=== PATIENT | female | born 1955 | race African-American/Black ===

== ENCOUNTER 2018-03-31 12:49 | Outpatient (CLI) | payer OTHER | END 2018-03-31 12:50 | disposition home or self-care (01) | LOC: BICMAMMO 12:49 | PROVIDERS: ATTEND Internal Medicine | DX: Z12.31 Encounter for screening mammogram for malignant neoplasm of breast (principal); R92.1 Mammographic calcification found on diagnostic imaging of breast; N64.89 Other specified disorders of breast | CPT/HCPCS: 77063; 77067 ==

== ENCOUNTER 2018-05-05 10:03 | Outpatient (CLI) | payer OTHER ==
--- NOTE | 2018-05-05 10:25 | RAD ---
TWO VIEWS CHEST: Comparison: 01-24-06 History: Shortness of breath FINDINGS: Two views of the chest show normal sized cardiomediastinal silhouette. There is no evidence of consol idation, mass, or pleural effusion. The bones are unremarkable. IMPRESSION: No evidence of acute cardiopulmonary disease. POS: [facility]
== END 2018-05-05 10:04 | disposition home or self-care (01) ==
LOC: BICRAD 10:03
PROVIDERS: ATTEND Internal Medicine
DX: R06.02 Shortness of breath (principal)
CPT/HCPCS: 71046

== ENCOUNTER 2018-07-23 13:02 | Outpatient (CLI) | payer OTHER | END 2018-07-23 13:03 | disposition home or self-care (01) | PROVIDERS: ATTEND Internal Medicine Pulmonary Disease | DX: J44.9 Chronic obstructive pulmonary disease, unspecified (principal) ==

== ENCOUNTER 2019-01-18 09:13 | Outpatient (CLI) | payer OTHER ==
--- NOTE | 2019-01-18 11:32 | BD ---
DEXA BONE DENSITY STUDY: Date: 01/18/19 HISTORY: Osteoporosis screening. COMPARISON: None. FINDINGS: Lumbar Spine: BMD (g/cm2) L1 0.763 T-Score: -2.1 Z-Score: 0.5 L2 0.784 T-Score: -2.2 Z-Score: -0.5 L3 0.763 T-Score: -2.9 Z-Score: -1.4 L4 0.853 T-Score: -1.9 Z-Score: 0.0 L1-L4 0.795 T-Score: -2.3 Z-Score: -0.5 Left Femoral Neck: 0.665 T-Score: -1.5 Z-Score: 0.0 Total Femur: 0.871 T-Score: -0.6 Z-Score: 0.6 WHO Classification: Osteopenia. 10 Year Fracture Risk: Major osteoporotic fracture: 3.6% Hip fracture: 0.3% IMPRESSION: Osteopenia with elevated fracture risk. POS: OFF
== END 2019-01-18 09:14 | disposition home or self-care (01) ==
LOC: BICMAMMO 09:13
PROVIDERS: ATTEND Internal Medicine
DX: Z13.820 Encounter for screening for osteoporosis (principal); M85.89 Other specified disorders of bone density and structure, multiple sites
CPT/HCPCS: 77080

== ENCOUNTER 2019-02-15 11:52 | Outpatient (CLI) | payer OTHER ==
--- NOTE | 2019-02-15 12:25 | RAD ---
XR Chest Pa Lat @ POB History: Dyspnea Comparison: Radiograph April 2018 Findings: Heart size mildly enlarged. Mild pulmonary venous congestion. No pneumothorax. No effusion. No acute osseous abnormality. Impression: Cardiomegaly with mild pulmonary venous congestion.
== END 2019-02-15 11:53 | disposition home or self-care (01) ==
LOC: RAD 11:52
PROVIDERS: ATTEND Internal Medicine Pulmonary Disease
DX: R06.00 Dyspnea, unspecified (principal); I51.7 Cardiomegaly; I87.8 Other specified disorders of veins
CPT/HCPCS: 71046

== ENCOUNTER 2019-03-01 03:06 | Inpatient (IN) | payer OTHER ==
[2019-03-01] MEDS ORDERED: methylPREDNISolone Sod Succ/PF 125 MG/2 ML VIAL ONE (03:47)
[2019-03-01 04:17] LABS: ALT (SGPT) 24 U/L (8-55); AST (SGOT) 24 U/L (5-34); Albumin 3.5 g/dL (3.4-4.8); Alkaline Phosphatase 131 U/L (40-110); Anion Gap 17 mmol/L (10-20); BUN (Urea Nitrogen) 30 mg/dL (9.8-20.1); Bilirubin, Total 0.7 mg/dL (0.2-1.2); Calc. Creatinine Clearance 0 mL/min (70-130); Calcium 9.3 mg/dL (7.8-10.44); Carbon Dioxide 24 mmol/L (23-31); Chloride 102 mmol/L (98-107); Estimated GFR-MDRD 54; Globulin 3.4 g/dL (2.4-3.5); Glucose 189 mg/dL (80-115); Potassium 3.7 mmol/L (3.5-5.1); Protein, Total 6.9 g/dL (6.0-8.3); Sodium 139 mmol/L (136-145)
[2019-03-01 04:25] LABS: Hemoglobin 10.2 g/dL (12.0-16.0); Mean Corpuscular HGB CONC 31.8 g/dL (32.0-36.0); Mean Corpuscular Hemoglobin 23.6 pg (27.0-31.0); Mean Corpuscular Volume 74.3 fL (78.0-98.0); Mean Platelet Volume 10.7 fL (7.4-10.4); Platelet Count 326 thou/uL (130-400); RBC Distribution Width 16.3 % (11.5-14.5); Red Blood Cell (RBC) Count 4.33 mill/uL (4.20-5.40); White Blood Cell (WBC) Count 9.9 thou/uL (4.8-10.8)
[2019-03-01] MEDS ORDERED: Furosemide 40 MG/4 ML VIAL ONE ×4 (04:37→13:38)
[2019-03-01 04:39] LABS: CKMB 3.3 ng/mL (0-6.6)
[2019-03-01 05:07] LABS: #Basophils 0.1 thou/uL (0.0-0.2); #Lymphocytes 2.6 thou/uL (1.20-3.40); #Monocytes 0.8 thou/uL (0.11-0.59); #Neutrophils 6.3 thou/uL (1.40-6.50); %Basophils 0.7 % (0.0-1.0); %Eosinophils 0.5 % (0.0-10.0); %Lymphocytes 26.6 % (21.0-51.0); %Monocytes 8.4 % (0.0-10.0); %Neutrophils 63.8 % (42.0-75.0); Anisocytosis SLIGHT = 6-15 cells (100X) (0-5/hpf); Burr Cells SLIGHT = 2-5 cells (100X) (0-1/hpf); Hypochromia SLIGHT = 6-15 cells (100X) (0-5/hpf); Large Platelets SLIGHT; MDiff Complete? YES; Microcytosis SLIGHT = 6-15 cells (100X) (0-5/hpf); Platelet Morphology Comment Appears Adequate; Polychromasia SLIGHT = 2-3 cells (100X) (0-2/hpf); Target Cells SLIGHT = 2-5 cells (100X) (0-1/hpf)
--- NOTE | 2019-03-01 05:16 | PDOC.HHP ---
Hospitalist HPI - History of Present Illness Shortness of breath History of Present Illness: Patient is a 63 year old female with PMH COPD, CAD, DM, HTN who presents to hospital for shortness of breath for a few weeks, drastically worsened on Friday. She went to jig and fixture builder apprentice last week who prescribed steroids, patient has been using neb treatments as well at home BID, helped somewhat but did not reverse decline. Her feet began to swell as well. She had a DVT study which was negative as outpatient. Patient reported some chest pain this morning that has resolved. Patient went to molten iron pourer last month (Dr. Wright) who performed EKG , echo, heart cath and reported to patient all results were normal. Patient has been recommended to wear o2 at home by one of her doctors but has not yet been approved. Hospitalist ROS - Review of Systems Constitutional: denies: fever, chills Eyes: denies: pain, vision change ENT: denies: ear pain, mouth swelling Respiratory: reports: shortness of breath. denies: cough Cardiovascular: reports: chest pain, edema. denies: light headedness Gastrointestinal: denies: nausea, vomiting Genitourinary: denies: dysuria, frequency Musculoskeletal: denies: neck pain, shoulder pain Skin: denies: rash, lesions Neurological: denies: weakness, numbness All other systems reviewed; all pertinent +/- noted in HPI/Subj - Medication Medications: reviewed Hospitalist History - Past Medical History Other Medical History: COPD DM HTN CAD - Past Surgical History Other Surgical History: stents c section hysterectomy - Family History Family History: reports: no pertinent history - Social History Smoking Status: Never smoker Alcohol: reports: None Drugs: reports: none - Exam General Appearance: NAD, awake alert Eye: PERRL, anicteric sclera ENT: normocephalic atraumatic, no oropharyngeal lesions, moist mucosa Neck: supple, no JVD Heart: RRR, no murmur, no gallops, no rubs Respiratory - other findings: bibasilar crackles Gastrointestinal: soft, non-tender, non-distended Extremities: no cyanosis, no clubbing, 2+ LE edema Skin: no lesions, no rashes Neurological: cranial nerve grossly intact, normal sensation to touch, no weakness, no focal deficits Musculoskeletal: normal tone, normal strength Psychiatric: normal affect, normal behavior, A&O x 3, oriented to person Hospitalist Results - Labs Result Diagrams: 03/01/19 03:47 03/01/19 03:46 Lab results: WBC 9.9 thou/uL (4.8-10.8) 03/01/19 03:47 Hgb 10.2 g/dL (12.0-16.0) L 03/01/19 03:47 Hct 32.2 % (36.0-47.0) L 03/01/19 03:47 MCV 74.3 fL (78.0-98.0) L 03/01/19 03:47 Plt Count 326 thou/uL (130-400) 03/01/19 03:47 Neutrophils % 63.8 % (42.0-75.0) 03/01/19 03:47 Sodium 139 mmol/L (136-145) 03/01/19 03:46 Potassium 3.7 mmol/L (3.5-5.1) 03/01/19 03:46 Chloride 102 mmol/L (98-107) 03/01/19 03:46 Carbon Dioxide 24 mmol/L (23-31) 03/01/19 03:46 BUN 30 mg/dL (9.8-20.1) H 03/01/19 03:46 Creatinine 1.21 mg/dL (0.6-1.1) H 03/01/19 03:46 Glucose 189 mg/dL (80-115) H 03/01/19 03:46 Calcium 9.3 mg/dL (7.8-10.44) 03/01/19 03:46 Total Bilirubin 0.7 mg/dL (0.2-1.2) 03/01/19 03:46 AST 24 U/L (5-34) 03/01/19 03:46 ALT 24 U/L (8-55) 03/01/19 03:46 Alkaline Phosphatase 131 U/L (40-110) H 03/01/19 03:46 CK-MB (CK-2) 3.3 ng/mL (0-6.6) 03/01/19 03:46 Troponin I 0.036 ng/mL (< 0.028) H 03/01/19 03:46 B-Natriuretic Peptide 982.6 pg/mL (0-100) H 03/01/19 03:46 Serum Total Protein 6.9 g/dL (6.0-8.3) 03/01/19 03:46 Albumin 3.5 g/dL (3.4-4.8) 03/01/19 03:46 Additional comment: EKG sinus, nonspecific t wave changes Hospitalist H&P A/P - Plan Plan: 63F admitted for: # new onset CHF - worsening for weeks, negative cardiac workup and negative DVT duplex, sees Dr Luis of cardiology and Dr Beach of pulmonology - start 80 IV lasix BID - consult Dr Beach - need to talk to Dr Wright, call office when time permits or request records to see recent workup - trend troponins # HTN - resume home meds, PRNs in chart # DM - SSI # copd - no wheezing, consult Dr Beach
[2019-03-01] MEDS ORDERED: Furosemide 100 MG/10 ML VIAL SLOW IVP SCH ×2 (06:00→14:00)
[2019-03-01] MEDS ORDERED: HYDROcodone/Acetaminophen 5/325 mg Tablet PO PRN (06:09)
[2019-03-01] MEDS ORDERED: Acetaminophen 325 MG TAB PO PRN (06:09)
[2019-03-01] MEDS ORDERED: Bisacodyl 5 MG TAB PO PRN (06:09)
[2019-03-01] MEDS ORDERED: Bisacodyl 10 MG SUPP PR PRN (06:09)
[2019-03-01] MEDS ORDERED: Furosemide 40 MG/4 ML VIAL SLOW IVP SCH (07:00)
--- NOTE | 2019-03-01 08:30 | RAD ---
PORTABLE CHEST: Date: 03/01/19 PROVIDED CLINICAL HISTORY: Dyspnea. FINDINGS: Comparison with 02/15/19. The cardiac silhouette remains prominently enlarged. No focal consolidation, pleural fluid, or pneumo thorax apparent. IMPRESSION: Persistent enlargement of the cardiac silhouette without evidence for an acute cardiopulmonary proces s. POS: OFF
[2019-03-01] MEDS ORDERED: Enoxaparin Sodium 40 MG/0.4 ML SYRINGE ONE (09:49)
[2019-03-01] MEDS: Enoxaparin Sodium 40 MG/0.4 ML SYRINGE SC SCH (09:59)
[2019-03-01 10:26] LABS: Troponin I 0.013 ng/mL (< 0.028)
[2019-03-01] MEDS ORDERED: Ondansetron ODT 4 MG TAB PO PRN (11:01)
[2019-03-01] MEDS ORDERED: methylPREDNISolone Sod Succ/PF 125 MG/2 ML VIAL IVP SCH (12:00)
[2019-03-01] MEDS ORDERED: methylPREDNISolone Sod Succ 40 MG VIAL ONE ×2 (13:37→17:47)
[2019-03-01] MEDS: methylPREDNISolone Sod Succ 40 MG VIAL IVP SCH ×2 (13:43→19:04)
[2019-03-01] MEDS ORDERED: Furosemide 100 MG/10 ML VIAL ONE (13:48)
--- NOTE | 2019-03-01 14:30 | CON ---
DATE OF CONSULTATION: HISTORY OF PRESENT ILLNESS: Zohreh Prabhakar is a 63-year-old female, who was brought into the hospital with increasing shortness of breath, unresponsive to usual medication. She noticed orthopnea, PND, and lower extremity swelling. X-ray shows cardiomegaly and cephalization. She was given a breathing treatment and diuretics in the hospital. To good relief on most days, she can barely walk any significant distance without getting markedly short of breath. PAST MEDICAL HISTORY: COPD, diabetes, coronary artery disease, and hypertension. PAST SURGICAL HISTORY: Including multiple stents, , and appendix. HOME MEDICATIONS: Include; 1. Metformin 1000 mg. 2. Glimepiride 5 mg twice a day. 3. Simvastatin 5 mg. ALLERGIES: NONE. SOCIAL HISTORY: Tobacco, none. Alcohol, none. Drugs, none. REVIEW OF SYSTEMS: Otherwise, ten-point negative. PHYSICAL EXAMINATION: VITAL SIGNS: On examination, temperature 98, pulse 90, respiratory rate 24, saturations are 93 on 2 L, and blood pressure 146/80. CHEST: No wheezing or crackles. CARDIAC: Normal S1 and S2. No gallops. ABDOMEN: Soft. EXTREMITIES: 1+ edema. LABORATORY DATA: Creatinine is 1.21. BNP is 982. Troponin is elevated. IMPRESSION: 1. Dyspnea secondary to congestive heart failure. 2. Nonsmoker. 3. Severe deconditioning. 4. Azotemia likely with diuretics. PLAN: Echo is being ordered. BNP is elevated. I have initiated neb treatments and steroids to her present regimen. We will follow. Consultation note, 70 minutes, 50% direct patient care. Job ID: [id number]
[2019-03-01 18:47] LABS: Troponin I 0.018 ng/mL (< 0.028)
[2019-03-01] MEDS ORDERED: Dextrose 50% Abboject 50 ML SYRINGE SLOW IVP PRN (19:13)
[2019-03-01] MEDS ORDERED: Dextrose 5% in Water 1,000 ML IV PRN (19:13)
--- NOTE | 2019-03-01 21:23 | PDOC.EVN ---
Event Note - Event Note Event Note: Patient is doing much better with lasix. She denies cough, chest congestion, URI symptoms, wheezing. She states her leg swelling was all the way up to her thighs and now almost gone. Also had orthopnea. She was drinking 3 16 ounce glasses of water daily. She stated her swelling started after taking prednisone taper given by pulmonology. She would like her steroids to be discontinued. She denies chest pain Vitals: patient on 2L oxygen Gen: alert, awake, oriented times three on 2L CV: RRR, no murmurs, rubs, gallops Lungs: CTAB AbdomeN: +BS, soft, nontender, nondistended Extremities: 1+ pitting edema Chest x ray: cardiomegaly This is a 63 year old female with CAD who presented with peripheral edema Acute CHF CAD s/p 5 stents - patient states had ECHO done last month in January with valve inspector. Denies history of CHF, but seems possible. Will obtain records. Does not think her insurance will pay for another one so will d/c - received 120 mg IV lasix today, switch to oral lasix 40 mg po tomorrow. Patient unaware of fluid restriction COPD on 2l oxygen - supposed to get oxygen at home, but hasn't received it yet - continue breathing treatments -d/c steroids Type II diabetes - insulin slidingg scale - on metformin as outpatient
[2019-03-01 21:26] VITALS: BMI 31.8
[2019-03-02 05:07] LABS: #Monocytes 1.2 thou/uL (0.11-0.59); %Basophils 0.1 % (0.0-1.0); %Eosinophils 0.3 % (0.0-10.0); %Lymphocytes 10.4 % (21.0-51.0); %Monocytes 13.1 % (0.0-10.0); %Neutrophils 76.1 % (42.0-75.0); Hemoglobin 10.9 g/dL (12.0-16.0); Mean Corpuscular HGB CONC 30.5 g/dL (32.0-36.0); Mean Corpuscular Hemoglobin 23.7 pg (27.0-31.0); Mean Corpuscular Volume 77.5 fL (78.0-98.0); Mean Platelet Volume 11.4 fL (7.4-10.4); Platelet Count 299 thou/uL (130-400); RBC Distribution Width 16.8 % (11.5-14.5); Red Blood Cell (RBC) Count 4.62 mill/uL (4.20-5.40); White Blood Cell (WBC) Count 9.2 thou/uL (4.8-10.8)
[2019-03-02 05:24] LABS: Anion Gap 18 mmol/L (10-20); BUN (Urea Nitrogen) 32 mg/dL (9.8-20.1); Calc. Creatinine Clearance 60 mL/min (70-130); Calcium 9.2 mg/dL (7.8-10.44); Carbon Dioxide 22 mmol/L (23-31); Chloride 102 mmol/L (98-107); Estimated GFR-MDRD 52; Glucose 244 mg/dL (80-115); Magnesium 1.6 mg/dL (1.6-2.6); Potassium 4.3 mmol/L (3.5-5.1); Sodium 138 mmol/L (136-145)
[2019-03-02] MEDS ORDERED: Furosemide 40 MG TAB PO SCH (07:30)
[2019-03-02 08:16] LABS: Iron 31 ug/dL (50-170); Iron Binding Capacity, Total 418 mcg/dL (265-497)
[2019-03-02] MEDS: Enoxaparin Sodium 40 MG/0.4 ML SYRINGE SC SCH (08:19)
--- NOTE | 2019-03-02 09:13 | PRG ---
DATE OF SERVICE: 03/02/2019 SUBJECTIVE: This morning, she is better. She is less short of breath. I's and O's have been consistently difficult to assess. OBJECTIVE: VITAL SIGNS: Saturations are 92 on 2 L, temperature 97, pulse 89, and blood pressure 130/90. CHEST: Decreased breath sounds. No wheezing. CARDIAC: Normal S1 and S2. No gallops. ABDOMEN: No masses. LABORATORY DATA: Creatinine is 1.25. White count 9000. ASSESSMENT: Chronic obstructive pulmonary disease exacerbation, congestive heart failure, diastolic dysfunction. Apparently, her steroids were discontinued because of concern about swelling. Unfortunately, there is nothing to do with this swelling. BNP is elevated. She has diastolic dysfunction. Respiratory failure, combination of congestive heart failure and chronic obstructive pulmonary disease. Continue low-dose steroids, neb treatments, supportive care. Echo. Cardiac input. Job ID: [id number] MTDD
--- NOTE | 2019-03-02 13:12 | PDOC.HOSPP ---
- Subjective Encounter Date: 03/02/19 Encounter Time: 11:00 Subjective: The patient feels much better. Her breathing got slightly worst today she says. She does not want any steroids. Has a mild cough. She still has some leg swelling. She doesn't yet feel back to her baseline. - Objective Vital Signs & Weight: Vital Signs (12 hours) Temp Pulse Pulse Pulse Resp BP BP 03/02/19 12:00 112 H 108 H 146/71 H 135/68 03/02/19 11:40 97.7 F 112 H 18 03/02/19 10:56 103 H 22 H 03/02/19 07:57 95 18 03/02/19 07:40 97.8 F 89 20 03/02/19 07:30 03/02/19 04:04 98.4 F 107 H 16 BP Pulse Ox Pulse Ox Pulse Ox 03/02/19 12:00 94 L 97 03/02/19 11:40 146/71 H 90 L 03/02/19 10:56 92 L 03/02/19 07:57 92 L 03/02/19 07:40 134/90 94 L 03/02/19 07:30 93 L 03/02/19 04:04 131/70 93 L Weight Weight 185 lb 3.2 oz I&O: 03/01/19 03/02/19 03/03/19 06:59 06:59 06:59 Intake Total 50 Output Total 0 Balance 50 Result Diagrams: 03/02/19 04:41 03/02/19 04:41 Additional Labs: Accuchecks 03/02/19 03/02/19 03/01/19 10:25 06:15 15:28 POC Glucose 243 H 244 H 240 H Hospitalist ROS - Review of Systems Constitutional: denies: fever, chills - Medication Medications: Active Medications Generic Name Dose Route Start Last Admin Trade Name Freq PRN Reason Stop Dose Admin Albuterol/Ipratropium 3 ml 03/01/19 15:00 03/02/19 10:56 Duoneb NEB 3 ml [id number] IZZY Administration Enoxaparin Sodium 40 mg 03/01/19 09:00 03/02/19 08:19 Lovenox SC 40 mg 0900 IZZY Administration Furosemide 40 mg 03/02/19 07:30 03/02/19 08:19 Lasix PO 40 mg DAILY-AC [facility] Administration - Exam General Appearance: NAD, awake alert Eye: PERRL, anicteric sclera ENT: normocephalic atraumatic, no oropharyngeal lesions Neck: supple, symmetric, no JVD, no thyromegaly Heart: RRR, no murmur, no gallops, no rubs Respiratory: CTAB, no wheezes, no rales Respiratory - other findings: mildly diminished breath sounds LLL. On nasal cannula Gastrointestinal: soft, non-tender, non-distended Extremities: no cyanosis, no clubbing Extremities - other findings: 2+ pitting edema bilateral lower extremities Skin: normal turgor, no lesions, no rashes Neurological: cranial nerve grossly intact, normal sensation to touch, no focal deficits Musculoskeletal: normal tone, normal strength, no muscle wasting Psychiatric: normal affect, normal behavior, A&O x 3 Hosp A/P - Plan This is 63 year old female with history of CAD who presented with increasing peripheral edema, orthopnea, admitted for acute CHF Acute CHF CAD s/p 5 stents - she is s/p 120 mg IV lasix yesterday. Got - patient states had ECHO done last month in January with car distributor. Denies history of CHF, but seems possible. Will obtain records. Does not think her insurance will pay for another one so will d/c - received 120 mg IV lasix on 03/01, switched to furosemide 40 mg this am. Will increase it to BID Possible JEAN - creatinine increased to 1.25. Possibly cardiorenal - lasix 40 mg bid - recheck BMP tomorrow COPD on 2l oxygen - supposed to get oxygen at home, but hasn't received it yet - continue breathing treatments -steroids weaned to prednisone 20 mg daily, however patient refusing Type II diabetes - insulin sliding scale - on metformin as outpatient Mild iron deficiency anemia vs anemia of chronic disease - ferritin 73, iron sat low - hemoglobin 10 - needs outpatient colonoscopy - will start iron supplement - check EPO level Code status: full code
[2019-03-02] MEDS: HumaLOG 300 UNITS/3 ML VIAL SC PRN (17:26)
[2019-03-02] MEDS: Furosemide 40 MG TAB PO SCH (20:51)
[2019-03-03] MEDS ORDERED: diphenhydrAMINE 25 MG CAP PO PRN (01:21)
[2019-03-03] MEDS: diphenhydrAMINE 25 MG CAP PO PRN (01:40)
[2019-03-03 05:40] LABS: #Eosinphils 0.1 thou/uL (0.0-0.7); #Lymphocytes 2.3 thou/uL (1.20-3.40); #Neutrophils 8.7 thou/uL (1.40-6.50); %Basophils 0.1 % (0.0-1.0); %Eosinophils 0.5 % (0.0-10.0); %Monocytes 8.6 % (0.0-10.0); %Neutrophils 71.9 % (42.0-75.0); Mean Corpuscular HGB CONC 30.2 g/dL (32.0-36.0); Mean Corpuscular Hemoglobin 23.6 pg (27.0-31.0); Mean Corpuscular Volume 78.1 fL (78.0-98.0); Mean Platelet Volume 11.6 fL (7.4-10.4); Platelet Count 262 thou/uL (130-400); RBC Distribution Width 17.3 % (11.5-14.5); Red Blood Cell (RBC) Count 4.66 mill/uL (4.20-5.40); White Blood Cell (WBC) Count 12.1 thou/uL (4.8-10.8)
[2019-03-03 06:12] LABS: Anion Gap 17 mmol/L (10-20); BUN (Urea Nitrogen) 24 mg/dL (9.8-20.1); Calc. Creatinine Clearance 68 mL/min (70-130); Carbon Dioxide 29 mmol/L (23-31); Chloride 99 mmol/L (98-107); Estimated GFR-MDRD 60; Glucose 177 mg/dL (80-115); Magnesium 1.7 mg/dL (1.6-2.6); Sodium 140 mmol/L (136-145)
[2019-03-03] MEDS: predniSONE 20 MG TAB PO SCH (08:38)
[2019-03-03] MEDS: Enoxaparin Sodium 40 MG/0.4 ML SYRINGE SC SCH (08:38)
[2019-03-03] MEDS: Furosemide 40 MG TAB PO SCH (08:38)
--- NOTE | 2019-03-03 09:29 | PRG ---
DATE OF SERVICE: 03/03/2019 SUBJECTIVE: She is better, less short of breath, less cough. OBJECTIVE: VITAL SIGNS: Temperature 97, pulse 110, respiratory rate 20, sats 97 on 2 L, and blood pressure 106/60. CHEST: No wheezing or crackles. CARDIAC: Normal S1 and S2. No gallops. ABDOMEN: No masses. IMPRESSION: Respiratory failure, chronic obstructive pulmonary disease, congestive heart failure, and diastolic dysfunction. echo ordered was cancelled why ? PLAN: Pulmonary will follow at a distance. She can be discharged home any time. donot call pulmonary if u are going to dc my orders ?? Job ID: [id number] MTDD
[2019-03-03] MEDS: HumaLOG 300 UNITS/3 ML VIAL SC PRN ×2 (10:33→17:34)
--- NOTE | 2019-03-03 19:16 | PDOC.HOSPP ---
- Subjective Encounter Date: 03/03/19 Encounter Time: 19:14 Subjective: The patient is feeling better. Has mild cough. Doesn't feel at her baseline yet. She says she felt dizzy walking. Heart rate is fast, has no history of atrial fibrillation. No palpitations or chest pain She feels her mouth is getting dry - Objective Vital Signs & Weight: Vital Signs (12 hours) Temp Pulse Pulse Resp BP BP BP 03/03/19 16:32 98.2 F 113 H 20 03/03/19 14:07 116 H 18 03/03/19 11:30 98.0 F 116 H 22 H 135/75 03/03/19 10:45 113 H 20 03/03/19 09:24 118 H 105/67 126/66 03/03/19 08:35 97.5 F L 110 H 20 03/03/19 07:27 117 H 22 H BP Pulse Ox 03/03/19 16:32 108/58 L 98 03/03/19 14:07 95 03/03/19 11:30 94 L 03/03/19 10:45 95 03/03/19 09:24 03/03/19 08:35 106/60 96 03/03/19 07:27 96 Weight Weight 183 lb 8 oz I&O: 03/02/19 03/03/19 03/04/19 06:59 06:59 06:59 Intake Total 50 480 970 Output Total 0 Balance 50 480 970 Result Diagrams: 03/03/19 05:03 03/03/19 05:03 Additional Labs: Accuchecks 03/03/19 03/03/19 03/03/19 17:15 10:18 05:23 POC Glucose 289 H 307 H 189 H 03/02/19 20:24 POC Glucose 220 H Hospitalist ROS - Review of Systems Constitutional: denies: fever, chills - Medication Medications: Active Medications Generic Name Dose Route Start Last Admin Trade Name Freq PRN Reason Stop Dose Admin Albuterol/Ipratropium 3 ml 03/01/19 15:00 03/03/19 18:14 Duoneb NEB 3 ml [id number] IZZY Administration Diphenhydramine HCl 50 mg 03/03/19 01:22 03/03/19 01:40 Benadryl PO 50 mg HS PRN Administration Itching & Insomnia Enoxaparin Sodium 40 mg 03/01/19 09:00 03/03/19 08:38 Lovenox SC 40 mg 0900 IZZY Administration Furosemide 40 mg 03/02/19 21:00 03/03/19 08:38 Lasix PO 40 mg BID IZZY Administration Insulin Human Lispro 0 units 03/01/19 19:13 03/03/19 17:34 Humalog SC 4 unit .MILD SLIDING SCALE PRN Administration Mild Correctional Scale Ondansetron HCl 4 mg 03/01/19 11:01 03/03/19 06:22 Zofran Odt PO 4 mg Q6H PRN Administration Nausea/Vomiting Prednisone 20 mg 03/03/19 08:00 03/03/19 08:38 Prednisone PO 20 mg QAM-WM IZZY Administration - Exam General Appearance: NAD, awake alert Eye: PERRL, anicteric sclera ENT: normocephalic atraumatic, no oropharyngeal lesions Neck: supple, symmetric, no JVD, no thyromegaly Heart: RRR, no murmur, no gallops, no rubs Respiratory: CTAB, no wheezes, no rales, no ronchi Respiratory - other findings: on 2L oxygen Gastrointestinal: soft, non-tender, non-distended, normal bowel sounds Extremities: no cyanosis, no clubbing, no edema Skin: normal turgor, no lesions, no rashes Neurological: cranial nerve grossly intact, normal sensation to touch, no focal deficits, no new deficit Musculoskeletal: normal tone, normal strength, no muscle wasting Hosp A/P - Plan This is 63 year old female with history of CAD who presented with increasing peripheral edema, orthopnea, admitted for acute CHF Acute CHF CAD s/p 5 stent - patient states had ECHO done last month in January with emergency medical technician/driver. Denies history of CHF, but seems possible. Will obtain records. Patient does not want another ECHO - received 120 mg IV lasix on 03/01, switched to furosemide 40 mg BID, but will decrease to 40 mg daily due to possible dehydration Tachycardia - patient's heart rate up to 113, will check EKG. Seems to possibly be in afib Dizziness - will check orthostatics, d/c lasix evening dose Possible JEAN - creatinine improved to 1.11 - got lasix this morning, will d/c evening dose COPD on 2l oxygen - supposed to get oxygen at home, but hasn't received it yet - continue breathing treatments -continue prednisone 20 mg daily, however patient refusing Type II diabetes - insulin sliding scale - on metformin as outpatient Mild iron deficiency anemia vs anemia of chronic disease - ferritin 73, iron sat low. EPO level pending - hemoglobin 10 - needs outpatient colonoscopy - will start iron supplement Code status: full code
[2019-03-04 04:21] LABS: #Basophils 0.1 thou/uL (0.0-0.2); #Monocytes 1.5 thou/uL (0.11-0.59); #Neutrophils 9.8 thou/uL (1.40-6.50); %Basophils 0.6 % (0.0-1.0); %Eosinophils 0.1 % (0.0-10.0); %Monocytes 10.6 % (0.0-10.0); %Neutrophils 67.7 % (42.0-75.0); Hemoglobin 10.8 g/dL (12.0-16.0); Mean Corpuscular HGB CONC 30.9 g/dL (32.0-36.0); Mean Corpuscular Hemoglobin 23.6 pg (27.0-31.0); Mean Corpuscular Volume 76.5 fL (78.0-98.0); Mean Platelet Volume 11.5 fL (7.4-10.4); Platelet Count 266 thou/uL (130-400); RBC Distribution Width 17.1 % (11.5-14.5); Red Blood Cell (RBC) Count 4.58 mill/uL (4.20-5.40); White Blood Cell (WBC) Count 14.5 thou/uL (4.8-10.8)
[2019-03-04 04:36] LABS: Anion Gap 15 mmol/L (10-20); BUN (Urea Nitrogen) 28 mg/dL (9.8-20.1); Calc. Creatinine Clearance 64 mL/min (70-130); Calcium 9.2 mg/dL (7.8-10.44); Carbon Dioxide 28 mmol/L (23-31); Chloride 96 mmol/L (98-107); Estimated GFR-MDRD 56; Glucose 92 mg/dL (80-115); Magnesium 1.7 mg/dL (1.6-2.6); Potassium 3.3 mmol/L (3.5-5.1); Sodium 136 mmol/L (136-145)
[2019-03-04] MEDS: predniSONE 20 MG TAB PO SCH (08:47)
[2019-03-04] MEDS: Enoxaparin Sodium 40 MG/0.4 ML SYRINGE SC SCH (08:47)
[2019-03-04] MEDS ORDERED: Potassium Chloride 20 MEQ TAB PO SCH (11:00)
[2019-03-04] MEDS: HumaLOG 300 UNITS/3 ML VIAL SC PRN ×3 (12:32→21:25)
[2019-03-04] MEDS ORDERED: Iopamidol 370 76% 100 ML VIAL ONE (13:27)
--- NOTE | 2019-03-04 16:18 | CT ---
CT PULMONARY ANGIOGRAM WITH IV CONTRAST AND 3D POSTPROCESSIN03/04/19 HISTORY: Dyspnea. FINDINGS: There is good contrast opacification of the pulmonary arterial vasculature without filling defects to suggest pulmonary embolism. There are vascular calcifications without evidence of aneurysmal dilatat ion of the thoracic aorta. No pleural effusions are seen. No pneumothoraces, focal areas of consolida tion, lung nodules or masses are identified. There are degenerative changes in the spine. Upper abdom inal tomograms demonstrate ascites. There is a small pericardial effusion. IMPRESSION: No CT evidence of pulmonary embolism. POS: [facility]
--- NOTE | 2019-03-04 16:30 | PDOC.HOSPP ---
- Subjective Encounter Date: 03/04/19 Encounter Time: 16:25 Subjective: The patient continues to have some shortness of breath just walking to the bathroom. She denies cough, barely phlegm. Still tachycardic, no afib WBC up to 14 - Objective Vital Signs & Weight: Vital Signs (12 hours) Temp Pulse Pulse Pulse Resp BP BP 03/04/19 14:30 106 H 24 H 03/04/19 13:57 115 H 18 03/04/19 11:39 109 H 108 H 114/63 113/71 03/04/19 11:19 98.2 F 112 H 20 03/04/19 10:19 108 H 16 03/04/19 08:41 98.0 F 112 H 23 H 03/04/19 07:00 112 H 18 03/04/19 05:50 BP BP Pulse Ox Pulse Ox Pulse Ox 03/04/19 14:30 112/81 96 03/04/19 13:57 94 L 03/04/19 11:39 90 L 95 03/04/19 11:19 101/58 L 93 L 03/04/19 10:19 98 03/04/19 08:41 118/67 98 03/04/19 07:00 92 L 03/04/19 05:50 92 L Weight Weight 184 lb 12.8 oz I&O: 03/03/19 03/04/19 03/05/19 06:59 06:59 06:59 Intake Total 480 1450 Balance 480 1450 Result Diagrams: 03/04/19 03:51 03/04/19 03:51 Additional Labs: Accuchecks 03/04/19 03/04/19 03/03/19 10:48 05:52 20:27 POC Glucose 243 H 113 H 212 H 03/03/19 17:15 POC Glucose 289 H Hospitalist ROS - Review of Systems Constitutional: denies: fever, chills - Medication Medications: Active Medications Generic Name Dose Route Start Last Admin Trade Name Freq PRN Reason Stop Dose Admin Albuterol/Ipratropium 3 ml 03/01/19 15:00 03/04/19 13:57 Duoneb NEB 3 ml [id number] IZZY Administration Diphenhydramine HCl 50 mg 03/03/19 01:22 03/03/19 01:40 Benadryl PO 50 mg HS PRN Administration Itching & Insomnia Enoxaparin Sodium 40 mg 03/01/19 09:00 03/04/19 08:47 Lovenox SC 40 mg 0900 IZZY Administration Insulin Human Lispro 0 units 03/01/19 19:13 03/04/19 12:32 Humalog SC 3 unit .MILD SLIDING SCALE PRN Administration Mild Correctional Scale Ondansetron HCl 4 mg 03/01/19 11:01 03/03/19 06:22 Zofran Odt PO 4 mg Q6H PRN Administration Nausea/Vomiting Prednisone 20 mg 03/03/19 08:00 03/04/19 08:47 Prednisone PO 20 mg QAM-WM IZZY Administration - Exam General Appearance: NAD, awake alert General - other findings: on 2L of oxygen Eye: PERRL, anicteric sclera ENT: normocephalic atraumatic, no oropharyngeal lesions Neck: supple, symmetric, no JVD, no thyromegaly Heart: RRR, no murmur, no gallops, no rubs Respiratory: CTAB, no ronchi Respiratory - other findings: mild crackles Gastrointestinal: soft, non-tender, non-distended, normal bowel sounds Extremities: no cyanosis, no clubbing, no edema Extremities - other findings: mild 2+ edema Skin: normal turgor, no lesions, no rashes Neurological: cranial nerve grossly intact, normal sensation to touch, no focal deficits, no new deficit Musculoskeletal: normal tone, normal strength, no muscle wasting Psychiatric: normal affect, normal behavior, A&O x 3, oriented to person Hosp A/P - Plan CTA: no PE, small pericardial effusion This is 63 year old female with history of CAD who presented with increasing peripheral edema, orthopnea, admitted for acute CHF #Acute hypoxic respiratory failure possibly from CHF #CAD s/p 5 stent #Pericardial effusion - patient states had ECHO done last month in January with mission support specialist. Denies history of CHF, but seems possible. Outpatient records pending Patient does not want another ECHO, however needs another ECHO to assess pericardial effusion - received 120 mg IV lasix on 03/01, switched to furosemide 40 mg BID, stopped lasix due to dehydration. Has 2+ edema - may resume lasix tomorrow since patient just got contrast -troponin was positive and downtrended #Tachycardia #Leukocytosis - WBC up to 14.5, may be from steroids - check blood cultures, UA - CTA shows no pneumonia - will try IV zosyn empirically #Dizziness -orthostatics negative #JEAN - creatinine 1.17 - baseline 1.04 - advise patient to drink more water - patient does not want renal ultrasound - check UA #COPD on 2l oxygen - supposed to get oxygen at home, but hasn't received it yet - continue breathing treatments -continue prednisone 20 mg daily, add pulmicort -needs home oxygen evaluation #Type II diabetes - insulin sliding scale - on metformin as outpatient #Mild iron deficiency anemia vs anemia of chronic disease - ferritin 73, iron sat low. EPO level pending - hemoglobin 10, started iron supplementation - needs outpatient colonoscopy Code status: full code
[2019-03-04] MEDS ORDERED: Piperacillin/Tazobactam 3.375 GM in Sodium Chloride 0.9% 100 ML IVPB SCH (16:45)
[2019-03-04] MEDS ORDERED: guaiFENesin ER 600 MG TAB PO SCH (16:45)
[2019-03-04] MEDS: Budesonide 0.25 MG/2 ML NEB INH SCH (18:39)
[2019-03-04] MEDS ORDERED: Ferrous Sulfate 325 MG TAB PO SCH (19:00)
[2019-03-04] MEDS: guaiFENesin ER 600 MG TAB PO SCH (21:34)
[2019-03-05] MEDS: Piperacillin/Tazobactam 3.375 GM in Sodium Chloride 0.9% 100 ML IVPB SCH ×4 (00:56→17:48)
[2019-03-05 04:53] LABS: Bilirubin Negative (Negative); Blood, Urine Negative (Negative); Clarity Clear (Clear); Glucose, Urine (Dipstick) Normal (Negative); Leukocyte Negative Leu/uL (Negative); Nitrite Negative (Negative); Protein, Urine (Dipstick) 70 mg/dL (Neg-Trace)
[2019-03-05 04:57] LABS: Hemoglobin 11.1 g/dL (12.0-16.0); Mean Corpuscular HGB CONC 30.3 g/dL (32.0-36.0); Mean Corpuscular Hemoglobin 23.5 pg (27.0-31.0); Mean Corpuscular Volume 77.4 fL (78.0-98.0); Mean Platelet Volume 8.6 fL (7.4-10.4); Platelet Count 197 thou/uL (130-400); RBC Distribution Width 17.4 % (11.5-14.5); Red Blood Cell (RBC) Count 4.73 mill/uL (4.20-5.40)
[2019-03-05 05:28] LABS: ALT (SGPT) 613 U/L (8-55); AST (SGOT) 442 U/L (5-34); Albumin 3.5 g/dL (3.4-4.8); Alkaline Phosphatase 160 U/L (40-110); Anion Gap 15 mmol/L (10-20); BUN (Urea Nitrogen) 28 mg/dL (9.8-20.1); Bilirubin, Total 1.4 mg/dL (0.2-1.2); Calc. Creatinine Clearance 73 mL/min (70-130); Calcium 9.3 mg/dL (7.8-10.44); Carbon Dioxide 25 mmol/L (23-31); Chloride 96 mmol/L (98-107); Estimated GFR-MDRD 65; Globulin 3.8 g/dL (2.4-3.5); Glucose 109 mg/dL (80-115); Potassium 4.4 mmol/L (3.5-5.1); Protein, Total 7.3 g/dL (6.0-8.3); Sodium 132 mmol/L (136-145)
[2019-03-05] MEDS: Budesonide 0.25 MG/2 ML NEB INH SCH ×2 (06:54→18:21)
[2019-03-05] MEDS: Enoxaparin Sodium 40 MG/0.4 ML SYRINGE SC SCH (08:05)
[2019-03-05] MEDS: predniSONE 20 MG TAB PO SCH (08:05)
[2019-03-05] MEDS: guaiFENesin ER 600 MG TAB PO SCH ×2 (08:05→20:17)
[2019-03-05] MEDS: Ferrous Sulfate 325 MG TAB PO SCH ×2 (08:05→17:48)
--- NOTE | 2019-03-05 14:07 | ULT ---
US Gallbladder RUQ History: Transaminitis. Gallstones. Comparison: Reference made to CT angiogram chest prior day Findings: Real-time grayscale and color evaluation right upper quadrant of the abdomen was performed. The aorta is unremarkable. Visualized portion of the pancreas is unremarkable. The inferior vena cava is enlarged. Liver measures 18.3 cm in length. Small volume perihepatic fluid. Diffuse increased hepatic echotextu re. Portal vein is patent with antegrade flow with mild increased phasicity. The common bile duct measure s 3 mm, normal. Low volume pericholecystic fluid. Mild wall thickening gallbladder. Right kidney is unremarkable with out mass, hydronephrosis, or abnormal calcifications. Sonographic Tian sign is negative. Impression: 1. Findings of gallbladder congestion with mild wall thickening and low-grade pericholecystic fluid w ithout cholelithiasis or gallbladder distention. 2. Mild diffuse hepatic steatosis. 3. Dilated inferior vena cava suggesting diastolic dysfunction and elevated right heart pressures.
[2019-03-05] MEDS ORDERED: Furosemide 20 MG/2 ML VIAL SLOW IVP SCH (15:15)
[2019-03-05] MEDS ORDERED: Furosemide 40 MG/4 ML VIAL SLOW IVP SCH (15:15)
--- NOTE | 2019-03-05 17:18 | PDOC.HOSPP ---
- Subjective Encounter Date: 03/05/19 Encounter Time: 17:16 Subjective: The patient still feels short of breath just walking twenty feet. No chest pain. Has some tachycardia LFTS elevated. Patient denies abdominal pain, nausea, vomiting. REports history of fatty liver in the past and gallstone in the past but states she still has gallbladder - Objective Vital Signs & Weight: Vital Signs (12 hours) Temp Pulse Pulse Resp BP BP BP 03/05/19 15:50 99 F 102 H 17 03/05/19 14:22 115 H 24 H 03/05/19 12:04 107 H 147/78 H 126/61 03/05/19 11:42 98.0 F 97 20 143/74 H 03/05/19 10:20 103 H 24 H 03/05/19 08:00 98.3 F 99 20 122/66 03/05/19 06:57 102 H 20 03/05/19 06:54 102 H 20 BP Pulse Ox 03/05/19 15:50 148/68 H 87 L 03/05/19 14:22 97 03/05/19 12:04 03/05/19 11:42 95 03/05/19 10:20 98 03/05/19 08:00 89 L 03/05/19 06:57 85 L 03/05/19 06:54 85 L Weight Weight 183 lb 11.2 oz I&O: 03/04/19 03/05/19 03/06/19 06:59 06:59 06:59 Intake Total 1450 1980 Output Total 700 Balance 1450 1280 Result Diagrams: 03/05/19 04:35 03/05/19 04:35 Additional Labs: Accuchecks 03/05/19 03/05/19 03/05/19 16:35 11:00 05:45 POC Glucose 317 H 242 H 141 H 03/04/19 20:57 POC Glucose 294 H Hospitalist ROS - Review of Systems Constitutional: denies: fever - Medication Medications: Active Medications Generic Name Dose Route Start Last Admin Trade Name Freq PRN Reason Stop Dose Admin Albuterol/Ipratropium 3 ml 03/01/19 15:00 03/05/19 14:22 Duoneb NEB 3 ml [id number] IZZY Administration Budesonide 0.25 mg 03/04/19 18:30 03/05/19 06:54 Pulmicort Neb Solution INH 0.25 mg BID-RT IZZY Administration Diphenhydramine HCl 50 mg 03/03/19 01:22 03/03/19 01:40 Benadryl PO 50 mg HS PRN Administration Itching & Insomnia Enoxaparin Sodium 40 mg 03/01/19 09:00 03/05/19 08:05 Lovenox SC 40 mg 0900 IZZY Administration Ferrous Sulfate 325 mg 03/05/19 08:00 03/05/19 08:05 Feosol PO 325 mg BID-WM IZZY Administration Guaifenesin 600 mg 03/04/19 21:00 03/05/19 08:05 Mucinex PO 600 mg Q12HR IZZY Administration Piperacillin Sod/Tazobactam 100 mls @ 200 mls/hr 03/04/19 23:59 03/05/19 13: 01 Sod 3.375 gm/ Sodium Chloride IVPB 100 mls Q6HR IZZY Administration Insulin Human Lispro 0 units 03/01/19 19:13 03/04/19 21:25 Humalog SC 4 unit .MILD SLIDING SCALE PRN Administration Mild Correctional Scale Ondansetron HCl 4 mg 03/01/19 11:01 03/03/19 06:22 Zofran Odt PO 4 mg Q6H PRN Administration Nausea/Vomiting Prednisone 20 mg 03/03/19 08:00 03/05/19 08:05 Prednisone PO 20 mg QAM-WM IZZY Administration - Exam General Appearance: NAD, awake alert General - other findings: on 2L of oxygen Eye: PERRL, anicteric sclera ENT: normocephalic atraumatic, no oropharyngeal lesions Neck: supple, symmetric, no JVD, no thyromegaly Heart: RRR, no murmur, no gallops, no rubs Respiratory: CTAB Respiratory - other findings: decreased breath sounds on the left lung Gastrointestinal: soft, non-tender, non-distended, normal bowel sounds Extremities: no cyanosis, no clubbing Extremities - other findings: 2+ pitting edema Skin: normal turgor, no lesions, no rashes Neurological: cranial nerve grossly intact, normal sensation to touch, no focal deficits, no new deficit Musculoskeletal: normal tone, normal strength, no muscle wasting Psychiatric: normal affect, normal behavior, A&O x 3 Hosp A/P - Plan CTA: no PE, small pericardial effusion Abdominal ultrasound: findings of gallbladder congestion without cholelithiasis or distension. Diffuse hepatic steatosis. Dilated IVC This is 63 year old who presented with CHF exacerbation Acute hypoxic respiratory failure secondary to CHF exacerbation - s/p 120 mg IV lasix on admission, then 40 mg bid, then held lasix yesterday due to CTA - patient's LFTS increasing, possibly from hepatic congestion. Will give another 40 mg IV lasix - CT showing pericardial effusion, patient is agreeable to ECHO Today. 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 Was on IV steroids, switched to prednisone 20 mg daily by pulmonary - continue pulmicort - home O2 eval determined patient needs oxygen on discharge #Tachycardia #Leukocytosis - improving - WBC went up to 14, started IV zosyn, improved to 13. CTA showed no pneumonia, but possibly atypical bronchitis ? - blood cultures negative, UA negative for infection #JEAN - resolved - creatinine down to 1.0, may have been dehydrated from lasix on admission - patient declined renal ultrasound - UA negative #Mild iron deficiency anemia - ferritin 73, iron sat low. EPO level elevated - hemoglobin 10, started iron supplementation - needs outpatient colonoscopy #Type II diabetes - insulin sliding scale - on metformin as outpatient #Dizziness- resolved Code status: full code
[2019-03-05] MEDS: HumaLOG 300 UNITS/3 ML VIAL SC PRN ×2 (17:48→22:49)
[2019-03-05] MEDS: diphenhydrAMINE 25 MG CAP PO PRN (20:17)
--- NOTE | 2019-03-06 00:29 | CON ---
DATE OF CONSULTATION: HISTORY OF PRESENT ILLNESS: The patient is an unfortunate 63-year-old woman who presents to the hospital with increasing dyspnea. The patient has a long history of coronary artery disease. She is followed by Dr. Wright. She said that she has had multiple stents placed into her coronary artery since 2001. The patient also has a history of COPD. The patient most recently underwent a cardiac catheterization and told that she had patent stents with no evidence of progressive coronary artery disease. The patient was in her usual state of health who presented with increasing dyspnea. The patient has been in the hospital for several days and diuresed with Lasix. The patient reported having increasing dyspnea and has noted increasing lower extremity swelling. PAST MEDICAL HISTORY: 1. Coronary artery disease. 2. COPD. 3. Hypertension. 4. Diabetes mellitus. PAST SURGICAL HISTORY: Hysterectomy, appendectomy, and . ALLERGIES: ORLIN-INHIBITOR/ARBS. SOCIAL HISTORY: Former smoker. REVIEW OF SYSTEMS: Ten-point system otherwise unremarkable. PHYSICAL EXAMINATION: GENERAL: Obese woman, in mild distress. VITAL SIGNS: Blood pressure 148/68. NECK: Full. LUNGS: Clear to auscultation. HEART: Regular rate and rhythm. Normal S1, S2. Tachycardic with a 1/6 systolic murmur. ABDOMEN: Distended. EXTREMITIES: Show mild bilateral edema. VASCULAR: Radial pulses 2+. LABORATORY DATA: White blood count 13.0, hematocrit 11.1, hematocrit 36.7, platelets were 197. Sodium is 132, potassium 4.4, chloride 96, bicarbonate 25, BUN 28, creatinine 1.0. Her AST is 422, ALT 613. Her EKG revealed her to have sinus tachycardia with an incomplete right bundle-branch block. IMAGING: Echocardiogram revealed her to have normal ejection fraction 50% to 55% with severe pulmonary hypertension. IMPRESSION: 1. Cor pulmonale. 2. Chronic obstructive pulmonary disease. 3. Diabetes mellitus. 4. Hypertension. 5. Obesity. 6. Hepatic failure. This unfortunate woman has severe pulmonary hypertension. She is followed primarily by Dr. Wright. We would avoid over diuresing this patient. With her young age, she should be eventually be considered for treatment for pulmonary hypertension by a specialist. We will try to obtain records from Dr. Wright and follow this patient with you through her hospitalization. Job ID: [id number] [facility]
[2019-03-06] MEDS: Piperacillin/Tazobactam 3.375 GM in Sodium Chloride 0.9% 100 ML IVPB SCH ×4 (01:08→17:20)
[2019-03-06 04:53] LABS: Hemoglobin 10.9 g/dL (12.0-16.0); Mean Corpuscular HGB CONC 31.3 g/dL (32.0-36.0); Mean Corpuscular Hemoglobin 23.8 pg (27.0-31.0); Mean Platelet Volume 12.5 fL (7.4-10.4); Platelet Count 211 thou/uL (130-400); RBC Distribution Width 17.2 % (11.5-14.5); Red Blood Cell (RBC) Count 4.58 mill/uL (4.20-5.40); White Blood Cell (WBC) Count 13.3 thou/uL (4.8-10.8)
[2019-03-06 05:26] LABS: ALT (SGPT) 550 U/L (8-55); AST (SGOT) 300 U/L (5-34); Albumin 3.4 g/dL (3.4-4.8); Alkaline Phosphatase 176 U/L (40-110); Anion Gap 13 mmol/L (10-20); BUN (Urea Nitrogen) 26 mg/dL (9.8-20.1); Calc. Creatinine Clearance 86 mL/min (70-130); Calcium 8.9 mg/dL (7.8-10.44); Carbon Dioxide 27 mmol/L (23-31); Chloride 97 mmol/L (98-107); Estimated GFR-MDRD 72; Globulin 3.4 g/dL (2.4-3.5); Glucose 68 mg/dL (80-115); Potassium 3.5 mmol/L (3.5-5.1); Protein, Total 6.8 g/dL (6.0-8.3); Sodium 133 mmol/L (136-145)
[2019-03-06] MEDS: Budesonide 0.25 MG/2 ML NEB INH SCH ×2 (06:50→18:37)
[2019-03-06] MEDS: Clopidogrel Bisulfate 75 MG TAB PO SCH (08:38)
[2019-03-06] MEDS: Ferrous Sulfate 325 MG TAB PO SCH ×2 (08:38→17:19)
[2019-03-06] MEDS: predniSONE 20 MG TAB PO SCH (08:38)
[2019-03-06] MEDS: guaiFENesin ER 600 MG TAB PO SCH ×2 (08:38→20:13)
[2019-03-06] MEDS: Enoxaparin Sodium 40 MG/0.4 ML SYRINGE SC SCH (08:38)
[2019-03-06] MEDS: HumaLOG 300 UNITS/3 ML VIAL SC PRN ×3 (11:30→21:36)
--- NOTE | 2019-03-06 16:05 | PDOC.HOSPP ---
- Subjective Subjective: Feeling better in general. Says she is about 80% back to her baseline with her breathing. Still has edema. - Objective Vital Signs & Weight: Vital Signs (12 hours) Temp Pulse Resp BP Pulse Ox 03/06/19 14:11 102 H 20 92 L 03/06/19 11:55 97.8 F 101 H 20 120/75 93 L 03/06/19 10:42 98 18 90 L 03/06/19 08:30 97.4 F L 94 20 130/76 94 L 03/06/19 06:51 87 L 03/06/19 06:48 106 H 22 H 87 L Weight Weight 201 lb 8 oz I&O: 03/05/19 03/06/19 03/07/19 06:59 06:59 06:59 Intake Total 1980 2500 Output Total 700 1160 Balance 1280 1340 Result Diagrams: 03/06/19 04:12 03/06/19 04:12 Additional Labs: Accuchecks 03/06/19 03/06/19 03/05/19 10:27 05:39 20:40 POC Glucose 173 H 81 372 H 03/05/19 16:35 POC Glucose 317 H Hospitalist ROS - Medication Medications: Active Medications Generic Name Dose Route Start Last Admin Trade Name Freq PRN Reason Stop Dose Admin Albuterol/Ipratropium 3 ml 03/01/19 15:00 03/06/19 14:11 Duoneb NEB 3 ml [id number] IZZY Administration Budesonide 0.25 mg 03/04/19 18:30 03/06/19 06:50 Pulmicort Neb Solution INH 0.25 mg BID-RT IZZY Administration Clopidogrel Bisulfate 75 mg 03/06/19 09:00 03/06/19 08:38 Plavix PO 75 mg DAILY IZZY Administration Diphenhydramine HCl 50 mg 03/03/19 01:22 03/05/19 20:17 Benadryl PO 50 mg HS PRN Administration Itching & Insomnia Enoxaparin Sodium 40 mg 03/01/19 09:00 03/06/19 08:38 Lovenox SC 40 mg 0900 IZZY Administration Ferrous Sulfate 325 mg 03/05/19 08:00 03/06/19 08:38 Feosol PO 325 mg BID-WM IZZY Administration Guaifenesin 600 mg 03/04/19 21:00 03/06/19 08:38 Mucinex PO 600 mg Q12HR IZZY Administration Piperacillin Sod/Tazobactam 100 mls @ 200 mls/hr 03/04/19 23:59 03/06/19 11: 30 Sod 3.375 gm/ Sodium Chloride IVPB 100 mls Q6HR IZZY Administration Insulin Human Lispro 0 units 03/01/19 19:13 03/06/19 11:30 Humalog SC 2 unit .MILD SLIDING SCALE PRN Administration Mild Correctional Scale Ondansetron HCl 4 mg 03/01/19 11:01 03/03/19 06:22 Zofran Odt PO 4 mg Q6H PRN Administration Nausea/Vomiting Prednisone 20 mg 03/03/19 08:00 03/06/19 08:38 Prednisone PO 20 mg QAM-WM IZZY Administration - Exam General Appearance: NAD, awake alert Neck: supple, symmetric, no JVD, no thyromegaly, no lymphadenopathy, no carotid bruit Heart: RRR, no gallops, no rubs, normal peripheral pulses, II/IV Respiratory: CTAB, no wheezes, no rales, no ronchi, normal chest expansion, no tachypnea, normal percussion Gastrointestinal: soft, non-tender, non-distended, normal bowel sounds, no palpable masses, no hepatomegaly, no splenomegaly, no bruit Extremities: no cyanosis, no clubbing, 2+ LE edema Musculoskeletal: normal tone, normal strength, no muscle wasting Psychiatric: normal affect, normal behavior, A&O x 3 Hosp A/P (1) Pulmonary hypertension Code(s): I27.20 - PULMONARY HYPERTENSION, UNSPECIFIED Status: Acute (2) Cor pulmonale Code(s): I27.81 - COR PULMONALE (CHRONIC) Status: Acute (3) COPD (chronic obstructive pulmonary disease) Status: Acute (4) Diabetes mellitus Code(s): E11.9 - TYPE 2 DIABETES MELLITUS WITHOUT COMPLICATIONS Status: Acute (5) Obesity (BMI 30.0-34.9) Code(s): E66.9 - OBESITY, UNSPECIFIED Status: Acute (6) Acute respiratory failure with hypoxia Code(s): J96.01 - ACUTE RESPIRATORY FAILURE WITH HYPOXIA Status: Acute (7) JEAN (acute kidney injury) Code(s): N17.9 - ACUTE KIDNEY FAILURE, UNSPECIFIED Status: Acute (8) Iron deficiency anemia Code(s): D50.9 - IRON DEFICIENCY ANEMIA, UNSPECIFIED Status: Acute (9) Leukocytosis Code(s): D72.829 - ELEVATED WHITE BLOOD CELL COUNT, UNSPECIFIED Status: Acute - Plan She is improving. Continue with the diuresis for RHF and cor pulmonale. cardiology recs appreciated. Will avoid over diuresis. Continue nebs, steroids, abx. Can likely DC abx tomorrow. Hope to be able to DC soon to follow up with PCP, cards for referral to the pulmonary hypertension specialist. Long discussion regarding the diagnosis and treatment plan. She seems to have a good understanding of the situation.
[2019-03-06] MEDS ORDERED: Simvastatin 20 MG TAB PO SCH (21:00)
[2019-03-07] MEDS: Piperacillin/Tazobactam 3.375 GM in Sodium Chloride 0.9% 100 ML IVPB SCH ×4 (00:37→17:21)
[2019-03-07] MEDS: Budesonide 0.25 MG/2 ML NEB INH SCH ×2 (06:55→18:45)
[2019-03-07] MEDS: predniSONE 20 MG TAB PO SCH (08:32)
[2019-03-07] MEDS: Ferrous Sulfate 325 MG TAB PO SCH ×2 (08:32→17:21)
[2019-03-07] MEDS: Sodium Chloride 0.9% 10 ML ONE (08:32)
[2019-03-07] MEDS: Clopidogrel Bisulfate 75 MG TAB PO SCH (08:32)
[2019-03-07] MEDS: guaiFENesin ER 600 MG TAB PO SCH ×2 (08:33→21:34)
[2019-03-07] MEDS: Enoxaparin Sodium 40 MG/0.4 ML SYRINGE SC SCH (08:33)
[2019-03-07] MEDS: HumaLOG 300 UNITS/3 ML VIAL SC PRN ×3 (11:03→21:34)
--- NOTE | 2019-03-07 15:59 | PDOC.HOSPP ---
- Subjective Subjective: Feeling better. No specific complaints. Feels like her breathing has improved. She does not have oxygen at home. Says she has had the process started, but it has been waiting on a signature from Dr. Beach. - Objective Vital Signs & Weight: Vital Signs (12 hours) Temp Pulse Resp BP BP Pulse Ox 03/07/19 14:57 107 H 18 93 L 03/07/19 11:01 98.8 F 95 20 142/76 H 94 L 03/07/19 10:30 95 18 93 L 03/07/19 07:25 98.6 F 89 20 148/80 H 94 L 03/07/19 06:54 117 H 20 93 L Weight Weight 201 lb 8 oz I&O: 03/06/19 03/07/19 03/08/19 06:59 06:59 06:59 Intake Total 2500 1640 Output Total 1160 725 Balance 1340 915 Result Diagrams: 03/06/19 04:12 03/06/19 04:12 Additional Labs: Accuchecks 03/07/19 03/07/19 03/06/19 10:36 05:39 19:59 POC Glucose 242 H 113 H 348 H Hospitalist ROS - Medication Medications: Active Medications Generic Name Dose Route Start Last Admin Trade Name Freq PRN Reason Stop Dose Admin Albuterol/Ipratropium 3 ml 03/01/19 15:00 03/07/19 14:57 Duoneb NEB 3 ml [id number] IZZY Administration Budesonide 0.25 mg 03/04/19 18:30 03/07/19 06:55 Pulmicort Neb Solution INH 0.25 mg BID-RT IZZY Administration Clopidogrel Bisulfate 75 mg 03/06/19 09:00 03/07/19 08:32 Plavix PO 75 mg DAILY IZZY Administration Diphenhydramine HCl 50 mg 03/03/19 01:22 03/05/19 20:17 Benadryl PO 50 mg HS PRN Administration Itching & Insomnia Enoxaparin Sodium 40 mg 03/01/19 09:00 03/07/19 08:33 Lovenox SC 40 mg 0900 IZZY Administration Ferrous Sulfate 325 mg 03/05/19 08:00 03/07/19 08:32 Feosol PO 325 mg BID-WM IZZY Administration Guaifenesin 600 mg 03/04/19 21:00 03/07/19 08:33 Mucinex PO 600 mg Q12HR IZZY Administration Piperacillin Sod/Tazobactam 100 mls @ 200 mls/hr 03/04/19 23:59 03/07/19 11: 02 Sod 3.375 gm/ Sodium Chloride IVPB 100 mls Q6HR IZZY Administration Insulin Human Lispro 0 units 03/01/19 19:13 03/07/19 11:03 Humalog SC 3 unit .MILD SLIDING SCALE PRN Administration Mild Correctional Scale Insulin Human Lispro 0 units 03/06/19 21:21 03/06/19 21:36 Humalog SC 4 unit .BEDTIME SLIDING SC PRN Administration Bedtime Correctional Scale Ondansetron HCl 4 mg 03/01/19 11:01 03/03/19 06:22 Zofran Odt PO 4 mg Q6H PRN Administration Nausea/Vomiting Prednisone 20 mg 03/03/19 08:00 03/07/19 08:32 Prednisone PO 20 mg QAM-WM IZZY Administration - Exam General Appearance: NAD, awake alert Heart: RRR, no murmur, no gallops, no rubs, normal peripheral pulses Respiratory: no rales (Scattered, bilateral, mild.) Gastrointestinal: soft, non-tender, non-distended, normal bowel sounds, no palpable masses, no hepatomegaly, no splenomegaly, no bruit Skin: normal turgor Musculoskeletal: normal tone, normal strength, no muscle wasting Psychiatric: normal affect, normal behavior, A&O x 3 Hosp A/P (1) Pulmonary hypertension Code(s): I27.20 - PULMONARY HYPERTENSION, UNSPECIFIED Status: Acute (2) Cor pulmonale Code(s): I27.81 - COR PULMONALE (CHRONIC) Status: Acute (3) COPD (chronic obstructive pulmonary disease) Status: Acute (4) Diabetes mellitus Code(s): E11.9 - TYPE 2 DIABETES MELLITUS WITHOUT COMPLICATIONS Status: Acute (5) Obesity (BMI 30.0-34.9) Code(s): E66.9 - OBESITY, UNSPECIFIED Status: Acute (6) Acute respiratory failure with hypoxia Code(s): J96.01 - ACUTE RESPIRATORY FAILURE WITH HYPOXIA Status: Acute (7) JEAN (acute kidney injury) Code(s): N17.9 - ACUTE KIDNEY FAILURE, UNSPECIFIED Status: Acute (8) Iron deficiency anemia Code(s): D50.9 - IRON DEFICIENCY ANEMIA, UNSPECIFIED Status: Acute (9) Leukocytosis Code(s): D72.829 - ELEVATED WHITE BLOOD CELL COUNT, UNSPECIFIED Status: Acute - Plan She is improving. Appears to be close to discharge. Continue with the diuresis for RHF and cor pulmonale. cardiology recs appreciated. Will avoid over diuresis. Continue nebs, steroids, abx. DC abx Hope to be able to DC soon to follow up with PCP, cards for referral to the pulmonary hypertension specialist. Long discussion regarding the diagnosis and treatment plan. She seems to have a good understanding of the situation. Will attempt to home oxygen for her in the morning in anticipation of discharge.
[2019-03-08] MEDS: Piperacillin/Tazobactam 3.375 GM in Sodium Chloride 0.9% 100 ML IVPB SCH ×4 (01:12→17:47)
[2019-03-08 05:55] LABS: ALT (SGPT) 489 U/L (8-55); AST (SGOT) 191 U/L (5-34); Albumin 3.3 g/dL (3.4-4.8); Alkaline Phosphatase 144 U/L (40-110); Bilirubin, Direct 0.6 mg/dL (0.1-0.3); Protein, Total 6.4 g/dL (6.0-8.3)
[2019-03-08] MEDS: Budesonide 0.25 MG/2 ML NEB INH SCH ×2 (07:02→19:23)
[2019-03-08] MEDS: Enoxaparin Sodium 40 MG/0.4 ML SYRINGE SC SCH (09:58)
[2019-03-08] MEDS: Clopidogrel Bisulfate 75 MG TAB PO SCH (09:59)
[2019-03-08] MEDS: guaiFENesin ER 600 MG TAB PO SCH ×2 (09:59→20:04)
[2019-03-08] MEDS: Ferrous Sulfate 325 MG TAB PO SCH ×2 (09:59→17:52)
[2019-03-08] MEDS: predniSONE 20 MG TAB PO SCH (09:59)
[2019-03-08] MEDS: Sodium Chloride 0.9% 10 ML ONE ×2 (10:00→13:03)
[2019-03-08] MEDS: HumaLOG 300 UNITS/3 ML VIAL SC PRN ×3 (13:04→21:48)
[2019-03-08 23:28] LABS: #Lymphocytes 1.1 thou/uL (1.20-3.40); #Monocytes 0.8 thou/uL (0.11-0.59); #Neutrophils 5.9 thou/uL (1.40-6.50); %Basophils 0.4 % (0.0-1.0); %Eosinophils 0.2 % (0.0-10.0); %Lymphocytes 14.4 % (21.0-51.0); %Monocytes 9.9 % (0.0-10.0); %Neutrophils 75.1 % (42.0-75.0); Mean Corpuscular HGB CONC 30.9 g/dL (32.0-36.0); Mean Corpuscular Hemoglobin 23.9 pg (27.0-31.0); Mean Corpuscular Volume 77.4 fL (78.0-98.0); Mean Platelet Volume 12.1 fL (7.4-10.4); Platelet Count 202 thou/uL (130-400); RBC Distribution Width 18.2 % (11.5-14.5); Red Blood Cell (RBC) Count 4.62 mill/uL (4.20-5.40); White Blood Cell (WBC) Count 7.8 thou/uL (4.8-10.8)
[2019-03-08 23:48] LABS: Anion Gap 13 mmol/L (10-20); BUN (Urea Nitrogen) 13 mg/dL (9.8-20.1); Calc. Creatinine Clearance 82 mL/min (70-130); Calcium 9.1 mg/dL (7.8-10.44); Carbon Dioxide 29 mmol/L (23-31); Chloride 100 mmol/L (98-107); Estimated GFR-MDRD 69; Glucose 213 mg/dL (80-115); Magnesium 2.1 mg/dL (1.6-2.6); Potassium 3.5 mmol/L (3.5-5.1); Sodium 138 mmol/L (136-145)
[2019-03-09] MEDS: Piperacillin/Tazobactam 3.375 GM in Sodium Chloride 0.9% 100 ML IVPB SCH ×3 (00:24→11:09)
[2019-03-09] MEDS: Budesonide 0.25 MG/2 ML NEB INH SCH ×2 (06:46→18:13)
[2019-03-09] MEDS: Ferrous Sulfate 325 MG TAB PO SCH ×2 (08:13→16:11)
[2019-03-09] MEDS: predniSONE 20 MG TAB PO SCH (08:15)
--- NOTE | 2019-03-09 08:40 | CON ---
DATE OF CONSULTATION: 03/08/2019 I am seeing Ms. Prabhakar at our [facility] Telemetry Floor as an electrophysiology sales support consultant. Her problems are, 1. Nonsustained wide-complex tachycardia, likely ventricular tachycardia x6 beats. 2. History of cor pulmonale. a. 2D echo from 03/05/2019 reveals LVEF of 50% to 55%, severely enlarged right atrium and right ventricle, [id number] TR, RV systolic pressure is 87 mmHg. 3. History of emphysema. 4. History of left heart catheterization and multiple stents in the past. 5. Hypertension, diabetes, and obesity. 6. History of COPD. ALLERGIES: ORLIN INHIBITORS. MEDICATIONS AT HOME: 1. Metformin. 2. Glyburide. 3. Simvastatin. 4. Metoprolol. 5. Isosorbide mononitrate. 6. Furosemide. 7. Clopidogrel. 8. Cholecalciferol. 9. Calcium carbonate. 10. Diphenhydramine. SUBJECTIVE: Ms. Prabhakar is here with progressive dyspnea. She has been short of breath for a few weeks and worsened this Friday. Pulmonary has prescribed outpatient steroids and neb treatments which helped somewhat, but did not reverse the decline. She had lower extremity swelling. DVT test was negative. Atypical chest pains were noted. Currently, she is feeling better, no further discomforts, her dyspnea has improved. The rest of 12-point review of systems is otherwise unremarkable. PAST MEDICAL HISTORY: As above. She is usually cared by Dr. Wright from a cardiology standpoint. SOCIAL HISTORY: The patient denies smoking, EtOH or drug abuse. PAST SURGICAL HISTORY: Significant for stents, , and hysterectomy. FAMILY HISTORY: Mother had a defibrillator. OBJECTIVE DATA: VITAL SIGNS: Blood pressure 174/87, heart rate 93, respiratory rate 16, and temperature 98.4 degrees Fahrenheit. PHYSICAL EXAMINATION: GENERAL: She is alert and oriented woman, in no apparent distress, elevated BMI. NECK: Supple. Jugular veins are distended. CHEST: Coarse without crackles. HEART: Heart sounds are regular to rate and rhythm. No murmur or gallop. ABDOMEN: Benign. Bowel sounds positive. LOWER EXTREMITIES: Without edema, clubbing or cyanosis. DATABASE: EKG is reviewed revealing sinus rhythm, RSR pattern, peaked P-wave suggestive of right atrial enlargement.RSR pattern, atypical epsilon wave cannot be ruledout. Telemetry strips reveal sinus rhythm with a single occurrence of 6 beats nonsustained ventricular tachycardia. LABORATORY DATA: White cell count is 13.3, hemoglobin is 10.9, and platelet count is 211. Sodium 133, potassium 3.5, BUN 26, and creatinine 0.95. ASSESSMENT AND PLAN: Ms. Prabhakar is a pleasant 63-year-old woman with advanced cor pulmonale, who has though normal left ventricular ejection fraction. She also has history of coronary artery disease, prior stents, recently evaluated by Dr. Wright per the patient's report, was found to be nonocclusive. She was admitted with worsening dyspnea, but now with direct therapy, she is feeling better. She had nonsustained wide-complex arrhythmia, which though was asymptomatic. She does not have any symptoms suggestive of sustained malignant ventricular arrhythmias. Arrhtyhmogenic right ventricular cardiomyopathy is a potential possibility to explain her ventricular arrhtyhmia. her EKGis possibly [id number] the presence of an epsilon wave and she has arrhtymia history of the mother. Cardiac MRI may helpfurther characterize her RV muscle to help secure the diagnosis of ARVD. As I discussed with Dr. Liang, I think it is reasonable to continue beta- memo therapy for this lady. Clearly, if she develops further more sustained ventricular arrhythmias, EP evaluation could be considered for ICD therapy. At this point though, conservative measures are advised. Risks of invasive procedures likely outweigh the potential benefit. Thank you again for allowing me to participate in the care of this patient. I will be happy to see her back if felt necessary. Job ID: [id number] MTDD
[2019-03-09] MEDS: Clopidogrel Bisulfate 75 MG TAB PO SCH (09:39)
[2019-03-09] MEDS: guaiFENesin ER 600 MG TAB PO SCH ×2 (09:39→21:27)
[2019-03-09] MEDS: Enoxaparin Sodium 40 MG/0.4 ML SYRINGE SC SCH (09:39)
[2019-03-09] MEDS: HumaLOG 300 UNITS/3 ML VIAL SC PRN ×3 (10:32→21:27)
[2019-03-09] MEDS: Bumetanide 1 MG/4 ML VIAL IVP SCH (10:39)
--- NOTE | 2019-03-09 11:27 | PDOC.HOSPP ---
- Subjective Subjective: Pt is resting comfortably in the chair on oxygen via [place]. Trial off O2 resulted in desaturation below 88%. - Objective Vital Signs & Weight: Vital Signs (12 hours) Temp Pulse Resp BP Pulse Ox 03/09/19 10:20 92 20 90 L 03/09/19 08:06 97.7 F 97 20 154/76 H 93 L 03/09/19 06:46 87 16 93 L 03/09/19 06:45 93 L 03/09/19 06:41 87 16 93 L 03/09/19 04:00 98.1 F 88 18 150/82 H 96 Weight Weight 203 lb 4.8 oz I&O: 03/08/19 03/09/19 03/10/19 06:59 06:59 06:59 Intake Total 1959 1000 Balance 1959 999 Result Diagrams: 03/08/19 23:19 03/08/19 23:19 Additional Labs: Accuchecks 03/09/19 03/08/19 03/08/19 05:40 20:34 16:32 POC Glucose 98 390 H 311 H Hospitalist ROS - Medication Medications: Active Medications Generic Name Dose Route Start Last Admin Trade Name Freq PRN Reason Stop Dose Admin Albuterol/Ipratropium 3 ml 03/01/19 15:00 03/09/19 10:20 Duoneb NEB 3 ml [id number] IZZY Administration Budesonide 0.25 mg 03/04/19 18:30 03/09/19 06:46 Pulmicort Neb Solution INH 0.25 mg BID-RT IZZY Administration Bumetanide 1 mg 03/09/19 09:00 03/09/19 10:39 Bumex IVP 1 mg DAILY IZZY Administration Clopidogrel Bisulfate 75 mg 03/06/19 09:00 03/09/19 09:39 Plavix PO 75 mg DAILY IZZY Administration Diphenhydramine HCl 50 mg 03/03/19 01:22 03/05/19 20:17 Benadryl PO 50 mg HS PRN Administration Itching & Insomnia Enoxaparin Sodium 40 mg 03/01/19 09:00 03/09/19 09:39 Lovenox SC 40 mg 0900 IZZY Administration Ferrous Sulfate 325 mg 03/05/19 08:00 03/09/19 08:13 Feosol PO 325 mg BID-WM IZZY Administration Guaifenesin 600 mg 03/04/19 21:00 03/09/19 09:39 Mucinex PO 600 mg Q12HR IZZY Administration Piperacillin Sod/Tazobactam 100 mls @ 200 mls/hr 03/04/19 23:59 03/09/19 11: 09 Sod 3.375 gm/ Sodium Chloride IVPB 100 mls Q6HR IZZY Administration Insulin Human Lispro 0 units 03/01/19 19:13 03/09/19 10:32 Humalog SC 3 unit .MILD SLIDING SCALE PRN Administration Mild Correctional Scale Insulin Human Lispro 0 units 03/06/19 21:21 03/08/19 21:48 Humalog SC 5 unit .BEDTIME SLIDING SC PRN Administration Bedtime Correctional Scale Metoprolol Succinate 50 mg 03/09/19 09:00 03/09/19 09:40 Toprol Xl PO 50 mg DAILY IZZY Administration Ondansetron HCl 4 mg 03/01/19 11:01 03/03/19 06:22 Zofran Odt PO 4 mg Q6H PRN Administration Nausea/Vomiting Prednisone 20 mg 03/03/19 08:00 03/09/19 08:15 Prednisone PO 20 mg QAM-WM IZZY Administration - Exam General Appearance: NAD, awake alert Respiratory: tachypneic (mild tachypnea) Extremities: 2+ LE edema Hosp A/P (1) Pulmonary hypertension Code(s): I27.20 - PULMONARY HYPERTENSION, UNSPECIFIED Status: Acute (2) Cor pulmonale Code(s): I27.81 - COR PULMONALE (CHRONIC) Status: Acute (3) COPD (chronic obstructive pulmonary disease) Status: Acute (4) Diabetes mellitus Code(s): E11.9 - TYPE 2 DIABETES MELLITUS WITHOUT COMPLICATIONS Status: Acute (5) Obesity (BMI 30.0-34.9) Code(s): E66.9 - OBESITY, UNSPECIFIED Status: Acute (6) Acute respiratory failure with hypoxia Code(s): J96.01 - ACUTE RESPIRATORY FAILURE WITH HYPOXIA Status: Acute (7) JEAN (acute kidney injury) Code(s): N17.9 - ACUTE KIDNEY FAILURE, UNSPECIFIED Status: Acute (8) Iron deficiency anemia Code(s): D50.9 - IRON DEFICIENCY ANEMIA, UNSPECIFIED Status: Acute (9) Leukocytosis Code(s): D72.829 - ELEVATED WHITE BLOOD CELL COUNT, UNSPECIFIED Status: Acute - Plan She is improving. Pulmonology visited with the patient and reiterated the nature of her condition. She seems to have an understanding of the balance between her heart and lung conditions at this time. Pt to d/c today and follow up with PCP, cards for referral to the pulmonary hypertension specialist. Long discussion regarding the diagnosis and treatment plan. Patient will go home with oxygen.
--- NOTE | 2019-03-09 12:34 | PRG ---
DATE OF SERVICE: 03/09/2019 SUBJECTIVE: She is to qualify for low-flow O2. She is ready to go home. She insisted on seeing me today. In the past, she declined to have an echocardiogram. However, echo shows now severe pulmonary hypertension. PA pressures were 87. Right ventricle was enlarged. Right atrium was enlarged. OBJECTIVE: VITAL SIGNS: Temperature 97, respirations 20, blood pressure 140/70. EXTREMITIES: 2+ edema. CHEST: Decreased breath sounds. No wheezing. CARDIAC: Normal S1 and S2. No gallops. ABDOMEN: No masses. LABORATORY DATA: Unremarkable. Glucose 213. ASSESSMENT: Severe pulmonary hypertension secondary to chronic obstructive pulmonary disease. PLAN: She is to qualify for low-flow O2, which is being arranged. She is to follow up with her primary care physician and with a brand director. Pulmonary moreno, medication. I advised her to stick with the nebulizer up to 4 times a day. I am not so sure why she is still on antibiotics. Job ID: [id number]
--- NOTE | 2019-03-09 14:12 | PRG ---
DATE OF SERVICE: 03/09/2019 SUBJECTIVE: Ms. Prabhakar is doing fair, although feels more swollen in the lower extremity and back today than before. OBJECTIVE: VITAL SIGNS: Blood pressure is 154/76, heart is 97, respirations 20 , and temperature 97.7 degrees Fahrenheit. GENERAL: Alert and oriented woman with elevated BMI, in no apparent distress. NECK: Supple. Jugular veins distended. CHEST: Coarse without crackles. HEART: Sounds are regular to rate and rhythm. No murmur or gallop. ABDOMEN: Benign. Bowel sounds positive. EXTREMITIES: Lower extremities with 1+ bilateral edema. NEUROLOGIC: The patient is nonfocal. MUSCULOSKELETAL: Without joint swelling or deformity. SKIN: Without rash. DATABASE: Telemetry strips reviewed, revealing sinus rhythm with 22 beats run of wide-complex rhythm noted. ASSESSMENT AND PLAN: Ms. Prabhakar is a 63-year-old woman with history of cor pulmonale with nonsustained ventricular tachyarrhythmia runs are noted. She has abnormal EKG, which could be consistent with the presence of epsilon wave. She has nonsustained ventricular tachycardia runs, so far mildly symptomatic only with mild dizziness at times. We discussed the significance of these findings potential future more dangerous ventricular arrhythmias are a possibility. On the other hand, she has very much advanced COPD/emphysema, which may limit her long-term longevity as well. We discussed the potential for ICD use in her condition. EP study may be beneficial prior to that to demonstrate with ventricular tachycardia. For now, she would like to have this further discussed with Dr. Wright who is her usual cold food packer. I will have to see her back as an outpatient after that. We did warn about potential for internim \malignant ventricular arrhythmias as well. Thank you again for allowing me to participate in the care of this patient. We will see this lady as an outpatient. Job ID: [id number] [facility]
[2019-03-10] MEDS: Budesonide 0.25 MG/2 ML NEB INH SCH (06:40)
[2019-03-10 08:02] VITALS: TEMP 98.6
[2019-03-10] MEDS ORDERED: Potassium Chloride 20 MEQ TAB PO SCH (09:00)
[2019-03-10] MEDS ORDERED: Furosemide 40 MG TAB PO SCH (09:00)
[2019-03-10] MEDS: Ferrous Sulfate 325 MG TAB PO SCH (09:09)
[2019-03-10] MEDS: Enoxaparin Sodium 40 MG/0.4 ML SYRINGE SC SCH (09:10)
[2019-03-10] MEDS: Clopidogrel Bisulfate 75 MG TAB PO SCH (09:10)
[2019-03-10] MEDS: predniSONE 20 MG TAB PO SCH (09:10)
[2019-03-10] MEDS: guaiFENesin ER 600 MG TAB PO SCH (09:11)
[2019-03-10] MEDS: Bumetanide 1 MG/4 ML VIAL IVP SCH (09:21)
[2019-03-10 09:39] VITALS: BP 149/77
[2019-03-10] MEDS: HumaLOG 300 UNITS/3 ML VIAL SC PRN (11:02)
[2019-03-11] MEDS ORDERED: Potassium Chloride 20 MEQ TAB PO SCH (08:00)
== END 2019-03-10 11:20 | disposition home or self-care (01) | DRG 291 ==
LOC: ERS 03:06 → ERHOLD 04:48 → 2NO 19:42
PROVIDERS: ADMIT Internal Medicine; ATTEND Internal Medicine
DX: I11.0 Hypertensive heart disease with heart failure (principal); J96.01 Acute respiratory failure with hypoxia; I50.31 Acute diastolic (congestive) heart failure; J44.1 Chronic obstructive pulmonary disease with (acute) exacerbation; N17.9 Acute kidney failure, unspecified; I47.2 Ventricular tachycardia; I27.81 Cor pulmonale (chronic); I27.20 Pulmonary hypertension, unspecified; I25.10 Atherosclerotic heart disease of native coronary artery without angina pectoris; E11.9 Type 2 diabetes mellitus without complications; Z90.710 Acquired absence of both cervix and uterus; Z79.84 Long term (current) use of oral hypoglycemic drugs; Z79.899 Other long term (current) drug therapy; Z95.5 Presence of coronary angioplasty implant and graft; D72.829 Elevated white blood cell count, unspecified; E86.0 Dehydration; Z87.891 Personal history of nicotine dependence; D50.9 Iron deficiency anemia, unspecified
CPT/HCPCS: 36415; 36416; 71045; 71275; 76705; 80048; 80053; 80076; 81003; 82553; 82668; 82728; 82947; 83540; 83550; 83735; 83880; 84443; 84484; 85025; 85027; 87040; 93005; 93010; 93306; 93798; 94640; 96374; 96375; J1650; J1940; J2543; J2920; J2930; J3490; J7512; J7620; J7626; Q0162; Q0163; Q9967